=== PATIENT | female | born 1990 | race Caucasian/White ===

== ENCOUNTER 2017-03-29 08:42 | Emergency (ER) | payer SELFPAY ==
[~2017-03-29] VITALS: Ht 175.3 cm; Wt 100.7 kg
[2017-03-29 08:45] VITALS: BP 133/87
== END 2017-03-29 09:48 | disposition home or self-care (01) ==
LOC: ER 08:42
DX: S29.012A Strain of muscle and tendon of back wall of thorax, initial encounter (principal); S16.1XXA Strain of muscle, fascia and tendon at neck level, initial encounter; M41.9 Scoliosis, unspecified; W01.0XXA Fall on same level from slipping, tripping and stumbling without subsequent striking against object, initial encounter; Y93.89 Activity, other specified; Y99.8 Other external cause status; Y92.009 Unspecified place in unspecified non-institutional (private) residence as the place of occurrence of the external cause
CPT/HCPCS: 72070